=== PATIENT | male | born 1965 | race Hispanic/Latino ===

== ENCOUNTER 2018-10-25 20:16 | Emergency (ER) | payer SELFPAY ==
[2018-10-25 20:17] VITALS: BMI 24.3
[2018-10-25 20:32] VITALS: RESP 20
[2018-10-25] MEDS ORDERED: Tdap Vaccine 0.5 ml Vial (10-64 yrs) IM ONE ×2 (21:03→21:11)
--- NOTE | 2018-10-25 21:17 | C.PDOC ---
History Of Present Illness 53 y/o male with a PMHx of brain surgery in 07/2018, brought in by EMS for evaluation s/p fall. Patient reports he has follow up with surgeon tomorrow. States since brain surgery, has had unsteady gait. Also reports he drank alcohol today and fell. + LOC as per EMS. Patient is now complaining of pain to the head, face, and neck. Denies any vomiting. No prior hx of blood thinner use. Denies visual changes, chest pain, SOB, numbness, or focal weakness. - HPI Time Seen by Provider: 10/25/18 20:38 Chief Complaint (Nursing): Trauma History Per: Patient History/Exam Limitations: no limitations Injury Occurred (Timing): Just Before Arrival Associated Symptoms: LOC Additional History Per: EMS Past Medical History Reviewed: Historical Data, Nursing Documentation, Vital Signs Vital Signs: Last Vital Signs Temp 97.5 F L 10/25/18 20:28 Pulse 98 H 10/25/18 20:28 Resp 20 10/25/18 20:28 BP 149/91 H 10/25/18 20:28 Pulse Ox 91 L 10/25/18 20:28 - Medical History PMH: Anxiety, Asthma, Bronchitis, COPD, Emphysema, Fractures Denies: Depression, Chronic Kidney Disease Other Surgeries: Brain surgery - [facility] INJECT/INFUSE ELECTROLYT (12/16/14) INJECT/INFUSE NEC (06/16/04) INTRODUCE OF OTH THERAP SUBST INTO RESP TRACT, VIA OPENING (11/24/15) MAGNETIC RESONANCE IMAGING OF SPINAL CANAL (06/06/02) NEBULIZER THERAPY (06/07/15) VACCINATION NEC (07/06/13) Family History: States: No Known Family Hx - Social History Hx Tobacco Use: Yes Hx Alcohol Use: Yes Hx Substance Use: Yes - Immunization History Hx Tetanus Toxoid Vaccination: Yes Hx Influenza Vaccination: No Hx Pneumococcal Vaccination: No Review Of Systems Except As Marked, All Systems Reviewed And Found Negative. Constitutional: Positive for: Other (Unsteady gait). Negative for: Fever Eyes: Negative for: Vision Change Cardiovascular: Negative for: Chest Pain Respiratory: Negative for: Shortness of Breath Gastrointestinal: Negative for: Nausea, Vomiting Musculoskeletal: Positive for: Neck Pain (and pain to face/head). Negative for: Back Pain Skin: Positive for: Lesions (lacerations to nose and forehead) Neurological: Positive for: Headache, Other (Fall, with +LOC). Negative for: Weakness, Numbness Physical Exam - Physical Exam Additional Physical Exam Comments: Constitutional: No acute distress. Head: Left cranial deformity s/p surgery. Eyes: PERRL. ENT: Moist mucous membranes. Neck: Cervical brace in place. Cardiovascular: Regular rate. Radial pulse 2+ bilaterally. Chest: No tenderness. Respiratory: Clear to auscultation bilaterally. GI: Soft. Nontender. Nondistended. Back: No CVA tenderness. Musculoskeletal: No tenderness or swelling of extremities. Skin: 1 cm laceration to the nasal bridge. Right forehead above the eyebrow there is an abrasion/laceration 5 cm in total length. Neurologic: Alert, no focal deficit. ED Course And Treatment O2 Sat by Pulse Oximetry: 91 (RA) Pulse Ox Interpretation: Abnormal Laceration - Laceration Repair No standard instances Wound Length (In cm): 1, 5 Description Of Wound: Linear, Stellate Wound Cleansed With: Betadine, Sterile Saline Anesthesia: Lidocaine 2% Wound Examination: Irrigated With Saline, No FB With Wound Exploration Wound Debridement/Revision: Wound Margins Revised Wound Closure: Suture (4-0) Suture Technique And Material Used: Interrupted (2,3), Nylon Wound Complexity: Simple Medical Decision Making Medical Decision Making: Plan: CT scans taken of head, maxillofacial, and c-spine. Tetanus booster given. CT Head resulted: FINDINGS: BRAIN No acute intraparenchymal hemorrhage. No mass lesion. No CT evidence for acute territorial infarct. No midline shift or extra-axial collections. VENTRICLES: No hydrocephalus. ORBITS: The orbits are unremarkable. SINUSES AND MASTOIDS: Right sphenoid sinusitis. BONES: Left frontoparietal craniectomy. SOFT TISSUES: Unremarkable. MISCELLANEOUS: Right forehead swelling. IMPRESSION: 1. Right forehead swelling. 2. Left frontoparietal craniectomy. 3. Right sphenoid sinusitis. 3. No acute pathology. CT Maxillofacial resulted: FINDINGS: BONES: No acute fracture or aggressive appearing osseous lesion. The mandible is intact. SOFT TISSUES: The soft tissues are unremarkable. SINUSES: Right sphenoid and bilateral frontal sinusitis. Nasal septum is deviated to the right. The remaining sinuses are clear. ORBITS: The orbits are normal. No retrobulbar hematoma or mass. IMPRESSION: Right sphenoid and bilateral frontal sinusitis. Nasal septum is deviated to the right. Unremarkable maxillofacial CT otherwise. CT neck CLINICAL HISTORY: Neck pain. Fall. TECHNIQUE: Multiple axial images were obtained through the cervical spine. Images were also reconstructed in coronal and sagittal planes. The study was per formed without IV contrast. COMMENTS: There is no fracture or spondylolisthesis visualized. The paraspinal soft tissues are unremarkable. There are no lytic or blastic lesions. Straightening of cervical lordosis is seen, suggesting muscular spasm. There is evidence of mildmultilevel disk disease, demonstrated by minimal osteophytosis and endplate sclerosis. No significant disk herniation is noted at any level. Canal and foramina remain patent. IMPRESSION: 1. No fracture or spondylolisthesis. 2. Straightening of cervical lordosis is seen, suggesting muscular spasm. 3. Mild multilevel spondylosis. Thank you for your kind referral of this patient. We appreciate the opportunity to participate in this patient's care. Electronically signed on Oct 25, 2018 10:28:36 PM EST by: Hardeep Figueredo M.D., FEROZ Certified By [facility] [employer] [facility] Fellowship Trained MRI and CT Specialist Disposition - Disposition Disposition: HOME/ ROUTINE Disposition Time: 23:33 Condition: STABLE Additional Instructions: Keep your appointment with Surgery tomorrow. Have your stitches taken out in 7 days. Prescriptions: RX: Bacitracin Ointment [Bacitracin] 1 appl TOP TID #1 tube Instructions: Laceration Repair Forms: [facility] (Gabonese) - Clinical Impression Clinical Impression: Laceration - injury - Scribe Statement The provider has reviewed the documentation as recorded by the Linda Kiser Provider Attestation: All medical record entries made by the Taraibe were at my direction and personally dictated by me. I have reviewed the chart and agree that the record accurately reflects my personal performance of the history, physical exam, medical decision making, and the department course for this patient. I have also personally directed, reviewed, and agree with the discharge instructions and disposition.
[2018-10-25] MEDS ORDERED: Lidocaine 2% Inj (20ml) INFIL ONE (22:31)
[2018-10-25] MEDS ORDERED: Lidocaine 2% MPF (5 ml) Inj ONE (22:40)
[2018-10-25] MEDS ORDERED: Bacitracin 500 Units/gm Oint Foilpak UD ONE (23:39)
[2018-10-25] MEDS ORDERED: Bacitracin 500 Units/gm Oint Foilpak UD TOP ONE (23:46)
[2018-10-26 00:03] VITALS: BP 130/72; PULSE 89; TEMP 97.4
[2018-10-26 00:42] VITALS: O2SAT 91
--- NOTE | 2018-10-26 08:29 | CT ---
Date of service: 10/25/2018 PROCEDURE: CT HEAD WITHOUT CONTRAST. HISTORY: Fall, head strike COMPARISON: None available. TECHNIQUE: Axial computed tomography images were obtained through the head/brain without intravenous contrast. Radiation dose: Total exam DLP = 911.52 mGy-cm. This CT exam was performed using one or more of the following dose reduction techniques: Automated exposure control, adjustment of the mA and/or kV according to patient size, and/or use of iterative reconstruction technique. FINDINGS: HEMORRHAGE: No intracranial hemorrhage. BRAIN: Johansen-white matter differentiation is preserved. There is no mass, mass effect or abnormal extra-axial fluid collection. There is no territorial infarction. The midline sagittal structures are normal. VENTRICLES: The ventricles are normal in size, shape and configuration. CALVARIUM: Status post left frontoparietal craniectomy. There is no calvarial fracture. There is a right frontal scalp hematoma. PARANASAL SINUSES: There is a retention cyst/polyp in the right sphenoid chamber. The remaining included paranasal sinuses are predominantly clear. MASTOID AIR CELLS: Predominantly clear. OTHER FINDINGS: None. IMPRESSION: No acute intracranial abnormality. Right frontal scalp hematoma. Chronic right sphenoid sinusitis. A preliminary report was provided by [employer]. Status post left frontoparietal craniectomy
--- NOTE | 2018-10-26 08:57 | CT ---
Date of service: 10/25/2018 PROCEDURE: CT Cervical Spine without contrast HISTORY: Fall, neck pain COMPARISON: None available. TECHNIQUE: Axial computed tomography images were obtained of the cervical spine without the use of intravenous contrast. Coronal and sagittal reformatted images were created and reviewed. Radiation dose: Total exam DLP = 488.09 mGy-cm. This CT exam was performed using one or more of the following dose reduction techniques: Automated exposure control, adjustment of the mA and/or kV according to patient size, and/or use of iterative reconstruction technique. FINDINGS: VERTEBRAE: There is degenerative 2 mm retrolisthesis of C4 on C5 and C5 on C6. There is normal cervical lordosis. There is no acute fracture or traumatic anterior listhesis. There is a detached anterior inferior osteophyte at C3. Bone mineralization is normal. The craniocervical junction is normal. The atlantoaxial joint is normal. DISCS/SPINAL CANAL/NEURAL FORAMINA: There is multilevel degenerative disc disease due to combination of disc osteophyte complexes, uncovertebral joint hypertrophy and multilevel facet arthropathy, worse at C5-6 with severe and mild right neural foraminal narrowing. No spinal canal stenosis. PARASPINAL SOFT TISSUES: The paraspinous soft tissues are normal. No prevertebral soft tissue thickening. OTHER FINDINGS: No apical pneumothorax. IMPRESSION: No acute fracture or traumatic anterior listhesis. A preliminary report was provided by [employer].
--- NOTE | 2018-10-26 09:04 | CT ---
Date of service: 10/25/2018 PROCEDURE: CT MAXILLOFACIAL BONES WITHOUT CONTRAST HISTORY: fall, facial injuries COMPARISON: None available. TECHNIQUE: Contiguous axial CT images of the maxillofacial bones were obtained. Coronal and sagittal reformats were generated. Radiation dose: Total exam DLP = 782.82 mGy-cm. This CT exam was performed using one or more of the following dose reduction techniques: Automated exposure control, adjustment of the mA and/or kV according to patient size, and/or use of iterative reconstruction technique. FINDINGS: NASAL BONES: No acute fracture. There is an S shaped nasal septum. ORBITS: No acute fracture. The globes are symmetric without intra or retro bulbar hemorrhage, lens dislocation orbital emphysema. PARANASAL SINUSES/ MASTOIDS: There is a retention cyst/polyp in the right sphenoid chamber. There is mild mucosal thickening in the ethmoid air cells. The remaining included paranasal sinuses are predominantly clear. MAXILLA: No acute maxillofacial fracture. MANDIBLE/ TEMPOROMANDIBULAR JOINTS: No acute fracture or dislocation. SKULL BASE: Unremarkable. TEMPORAL BONES: Middle ears and mastoid grossly unremarkable. OTHER FINDINGS: None. IMPRESSION: No acute fracture Chronic right sphenoid sinusitis. A preliminary report was provided by [email or web address].
== END 2018-10-26 00:03 | disposition home or self-care (01) ==
LOC: C.ER 20:16
DX: S01.21XA Laceration without foreign body of nose, initial encounter (principal); S01.81XA Laceration without foreign body of other part of head, initial encounter; W18.30XA Fall on same level, unspecified, initial encounter
CPT/HCPCS: 12014; 70450; 70486; 72125; 82948; 90471; 90715; 96372; 99285; J1885